=== PATIENT | female | born 1980 | race Asian ===

== ENCOUNTER 2017-05-18 05:50 | Inpatient (IN) | payer OTHER ==
--- NOTE | 2017-04-26 17:15 | GHP ---
[f rep st] PREOP HISTORY AND PHYSICAL DATE OF ADMISSION: 05/18/2017 Patient is scheduled for a repeat lower transverse section on May 18, 2017. PREOPERATIVE DIAGNOSIS: History of section, desires repeat at 39 weeks' gestation. HISTORY OF PRESENT ILLNESS: The patient is a 36-year-old, 2, para 1-0-0-1 with a last menstr ual period of 08/15/2016, and EDC of 05/23/2017 which is confirmed by an 8 week ultrasound. She has had good care at [facility] since registration at 8 weeks' gestation and has had a relatively uncomplicated course. The patient has a history of lower transverse se ction with G1 secondary to arrest of descent. The baby weighed 7 pounds 9 ounces and she had a prolo nged labor course. The patient declines a trial of labor after section with this baby. She desires of repeat lower transverse section at 39 weeks, and she is scheduled. Other risk factors include just rubella low immune, and she has an allergy to penicillin. I t gives her a rash. The patient has had normal labs in this and normal ultrasounds in this and progressed today to 36-1/7 weeks' gestation. She will be 39- 2/7 weeks on her [facility] ed day. PAST OBSTETRICAL HISTORY: Pertinent as above. Her prior was April of 2015. She had a viable female, weight 7 pounds 9 ounces at 39-6/7 weeks' gestation. secondary to arrest of descent, and this is her 2nd . PAST GYNECOLOGICAL HISTORY: She has a normal menses. She had menarche at age 14, interval every 28 days. Length 4-5 days. She had a normal last menstrual period of 08/15/2016. This was a planned pr egnancy. She has used NuvaRing and OCPs in the past. She denies history of abnormal Paps or STDs or any gynecological concerns. PAST MEDICAL HISTORY: She has exercise-induced asthma as a child and elevated BMI. PAST SURGICAL HISTORY: She has a history of ski injury and a right knee ACL repair in 2014, a C-sect ion also in 2014, wisdom teeth extraction in high school, and she had LASIK eye surgery in 2012. ALLERGIES: Penicillin. It gives her a rash. MEDICATIONS: Her only other meds include vitamins. LABORATORY DATA: She is O positive, antibody negative. RPR nonreactive. Rubella low immune. Hepat itis negative. HIV negative. Cystic fibrosis, SMA, fragile X negative. Pap normal. Gonorrhea and chlamydia normal. Progenity normal female. 1-hour GTT 108. GBS was performed today and so it is pe nding. SOCIAL HISTORY: She is . She lives with her , Brian, and her daughter, Jae. 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 She denies tobacco, alcohol, and drug use. FAMILY HISTORY: Father and paternal grandfather have elevated cholesterol. Maternal grandmother had lymphoma. Paternal grandmother has diabetes. REVIEW OF SYSTEMS: Today is negative except for symptoms as above. OBJECTIVE: VITAL SIGNS: Today her blood pressure is 98/56. Weight is 180 pounds. She is up 23 mahnaz nds this . GENERAL: She is a well-developed, gravid female in no acute distress. LAMONTE NGS: Clear to auscultation bilaterally. HEART: Regular rate and rhythm. No murmurs. ABDOMEN: Gr avid. Fundal height is 37. heart tones are in the 140s. IMAGING DATA: She had an ultrasound today which revealed baby to be size greater than dates by 5 day s. Estimated weight is 3122 g, which is 78th percentile. The baby is cephalic and TERRANCE is 19.1 . ASSESSMENT AND PLAN: A 36-year-old 2, para 1-0-0-1 who will be 39-2/7 weeks' gestation on [facility] 2017. She was consented for a repeat today. She understood the risks and benefi ts, the risks including bleeding, infection, damage to internal organs, uterus, tubes, ovaries, bowel , bladder, nerves, blood vessels, ureters, risk of injury, risk of hemorrhage requiring blood t ransfusion, hysterectomy, or . She understood these risks and benefits and agreed to proceed, a nd she declines a tubal ligation at this time. /[id number]/MODL
[2017-05-18] MEDS ORDERED: LR 1,000 ML IV SCH (06:05)
[2017-05-18] MEDS ORDERED: LR 500 ML IV ONE (06:05)
[2017-05-18] MEDS ORDERED: CITRIC ACID/SODIUM CITRATE 30 ML UDCUP PO ONE (06:05)
[2017-05-18 06:38] LABS: PLATELET COUNT 270 10^3/uL (150-400)
[2017-05-18] MEDS ORDERED: CLINDAMYCIN 900 MG/DEXTROSE 50 ML IV ONE (07:19)
--- NOTE | 2017-05-18 07:21 | PREANESOB ---
Obstetric Pre-Anesthesia Info - General Info Proposed Procedure: LTCS : 2 Para: 1 AMIRA: 05/23/17 Gestational Age: 39 week(s) and 2 day(s) - Info Status: Full Term Monitors: External FHR Pattern: Reassuring - Labor Status Section History: Repeat Indications for Current Section: Elective/Repeat Anesthesia ROS: negative other than persistant nausea through Allergies/Adverse Reactions: Allergy/AdvReac Type Severity Reaction Status Date / Time Penicillins Allergy Verified 05/04/15 19:21 Home Medications: Medication Instructions Recorded 1 tab PO DAILY 05/18/17 Visit Medications: Generic Name Dose Route Start Last Admin Trade Name Freq PRN Reason Stop Dose Admin Lactated Ringer's 1,000 mls @ 125 mls/hr 05/18/17 06:05 Lr IV 05/19/17 06:04 CONT SEBASTIÁN Discontinued Medications Generic Name Dose Route Start Last Admin Trade Name Freq PRN Reason Stop Dose Admin Citric Acid/Sodium Citrate 30 ml 05/18/17 06:05 05/18/17 07:15 Bicitra PO 05/18/17 06:06 30 ml ONCALL ONE Administration Lactated Ringer's 500 mls @ 0 mls/hr 05/18/17 06:05 Lr IV 05/18/17 06:06 ONCE ONE As Directed - Anesthesia History Response to Local Anesthetics: Normal Anesthesia & Operative History: No Prior Problems Family Anesthesia History: Not Applicable - Vital Signs Latest Vital Signs (Nursing): Temp Pulse Resp BP Pulse Ox 36.5 C 91 20 106/74 94 05/18/17 06:33 05/18/17 06:33 05/18/17 06:33 05/18/17 06:36 05/18/17 06:37 Height/Weight (Nursing): Height 156.21 cm Weight 81.647 kg - Focused Exam Neck exam: FROM Mallampati Score: Class 2 Mouth exam: normal dental/mouth exam, small mouth opening Pulmonary: no respiratory distress Cardiovascular: regular rate and rhythym Labs: 05/18/17 06:14 - Plan Anesthetic Plan: SAB Consent Signed and on Chart: Yes Patient/Guardian Understands and Agrees to Plan: Yes
[2017-05-18] MEDS ORDERED: MISOPROSTOL 200 MCG TAB ONE (07:23)
[2017-05-18] MEDS ORDERED: OXYTOCIN 10 UNIT/ML VIAL ONE (07:23)
[2017-05-18] MEDS ORDERED: fentaNYL 100 MCG/2 ML INJ ONE (07:30)
[2017-05-18] MEDS ORDERED: morphINE PF 5 MG/10 ML INJ ONE (07:30)
--- NOTE | 2017-05-18 08:03 | PDHPUP ---
History & Physical Update H&P update statement: This history and physical update is based on an assessment of the patient which was completed after admission or registration (within 24 hours), but prior to the surgery/procedure.
[2017-05-18] MEDS ORDERED: OXYTOCIN 100 UNITS/10 ML VIAL ONE (08:24)
[2017-05-18] MEDS ORDERED: PHENYLEPHRINE HCL 100 MCG/ML SYR ONE ×2 (08:24)
[2017-05-18] MEDS ORDERED: SIMETHICONE 80 MG TAB CHEW PO PRN (09:15)
[2017-05-18] MEDS ORDERED: ACETAMINOPHEN 325 MG TAB PO PRN (09:15)
[2017-05-18] MEDS ORDERED: PROMETHAZINE HCL 25 MG/ML INJ IVP PRN (09:15)
[2017-05-18] MEDS ORDERED: DOCUSATE SODIUM 100 MG CAP PO PRN (09:15)
[2017-05-18] MEDS ORDERED: MAGNESIUM HYDROXIDE 30 ML UDCUP PO PRN (09:16)
[2017-05-18] MEDS ORDERED: LACTULOSE 20 GM/30 ML UDCUP PO PRN (09:16)
[2017-05-18] MEDS ORDERED: POLYETHYLENE GLYCOL 3350 17 GM PKT PO PRN (09:16)
[2017-05-18] MEDS ORDERED: BISACODYL 10 MG SUPP PR PRN (09:16)
--- NOTE | 2017-05-18 09:20 | OBDEL ---
Info Type: Repeat Presentation at Delivery: Vertex L&D Analgesia/Anesthesia Type: Spinal GBS+: Yes Antibiotic Used for + GBS: Clindamycin Intrapartum Medications: Discontinued Medications Generic Name Dose Route Start Last Admin Trade Name Luis PRN Reason Stop Dose Admin Citric Acid/Sodium Citrate 30 ml 05/18/17 06:05 05/18/17 07:15 Bicitra PO 05/18/17 06:06 30 ml ONCALL ONE Administration Clindamycin Phosphate/Dextrose 50 mls @ 100 mls/hr 05/18/17 07:19 05/18/17 07 :42 Cleocin 900 Mg (Premix) IV 05/18/17 07:48 50 mls ONCALL ONE Administration Protocol - Care Provider Straw Hat Brim Cutter Operator/ENDOSCOPY TECHNICIAN: Michelle Erazo Indications for Delivery: Elective Operative Report - Delivery Pre-op Diagnoses: IUP @ 39 weeks, h/p c section desires repeat Post-op Diagnoses: same History of Prior Section: Yes Number of Prior Sections: 1 Nulliparous Prior to Delivery: No Indications for Prior Section: Arrest of Descent Indications for Current Section: Elective/Repeat Procedure: Scheduled Surgeon: Tita Bhakta Slipper Maker: Kady Grace Anesthesiologist: Kirk Salguero Complications: None Findings: normal uterus, tubes and ovaries IV Fluid (ml): 1,850 EBL: 750 Bledsoe Data AMIRA: 05/23/17 Gestational Age: 39 week(s) and 2 day(s) Souza Delivery Date: 05/18/17 Delivery Time: 08:28 Sex of : Female Score (1 Min): 9 Score (5 Min): 9 ICD10 Worksheet Patient Problems: Problems Problem Status Onset Status post repeat low transverse section Acute SROM (spontaneous rupture of membranes) Acute - ICD10 Problem Qualifiers (1) Status post repeat low transverse section
[2017-05-18] MEDS ORDERED: NALOXONE HCL 0.4 MG/ML INJ IVP PRN ×2 (09:24)
[2017-05-18] MEDS ORDERED: ONDANSETRON 4 MG/2 ML VIAL IVP PRN (09:24)
[2017-05-18] MEDS ORDERED: PHENYLEPHRINE HCL 100 MCG/ML SYR IVP PRN (09:24)
[2017-05-18] MEDS ORDERED: HYDROCODONE/APAP 5/325 TAB PO PRN (09:24)
[2017-05-18] MEDS ORDERED: fentaNYL 100 MCG/2 ML INJ IVP PRN (09:24)
--- NOTE | 2017-05-18 09:24 | POSTANESTH ---
Post Anesthetic Evaluation Cardiovascular Status: Normal, Stable Respiratory Status: Normal, Stable Level of Consciousness/Mental Status: Can Participate in Eval Pain Control: Adequate, Prn Tx Ordered Nausea/Vomiting Control: Adequate, Prn Tx Ordered Complications Possibly Related to Anesthesia: None Noted (SAB still in place)
--- NOTE | 2017-05-18 09:59 | GOP ---
[f rep st] OPERATIVE REPORT DATE OF OPERATION: 05/18/2017 SURGEON: Tita Bhakta MD CASH OFFICE WORKER: DREW Moore, certified nurse first anesthesia. ANESTHESIA: Spinal anesthesia. ANESTHESIOLOGIST: Kirk Salguero MD. PREOPERATIVE DIAGNOSIS: Intrauterine at 39+ weeks gestation with a history of se condary to arrest of descent, desires repeat. POSTOPERATIVE DIAGNOSIS: Intrauterine at 39+ weeks gestation with a history of secondary to arrest of desc ent, desires repeat. PROCEDURE PERFORMED: Repeat lower transverse section. FINDINGS: Viable female. Apgars of 9 and 9. Weight of 7 pounds 11 ounces. ESTIMATED BLOOD LOSS: 750 cc. INDICATIONS: The patient is a 36-year-old, 2, para 1-0-0-1 with a last menstrual period of 0 08/15/2016, and an EDC of 05/23/2017, confirmed by an 8-week ultrasound. She has had an uncomplicated course. She has a history of secondary to arrest of descent with G1 and desired repeat. She declined a trial of labor after section. The patient was consented for the pro cedure, understood the risks and benefits. The risks including bleeding, infection, damage to environmental intern al organs, uterus, tubes, ovaries, bowel, bladder, nerves, blood vessels, ureters, risk of inju ry, risk of hemorrhage requiring blood transfusion, hysterectomy, or complications. She understood t hese risks and benefits agreed to proceed. DESCRIPTION OF PROCEDURE: The patient was taken to the operating room where she was placed under spi nal anesthesia without difficulty. She was prepped and draped in the dorsal supine position with a l eftward tilt and a Griffith catheter was placed in her bladder. After adequate anesthesia was assured a nd a WHO timeout was performed, a transverse skin incision was made in the previous scar. The incision was carried down to the underlying layer of fascia with the Bovie. The fascia was incis ed in the midline. Fascial incision was extended laterally with Sultana scissors. the superior aspect of the fascial incision was grasped with Gena clamps, elevated, and the rectus muscles were dissect ed off sharply. The inferior aspect of fascial incision was grasped with Gena clamps, elevated, an d the rectus muscles were dissected off sharply. The rectus muscles were in the midline, p eritoneum was entered sharply. Peritoneal incision was extended superiorly and inferiorly with good visualization of bladder. Bladder blade was inserted. Vesicouterine peritoneum was grasped with pic kups, entered sharply with Metzenbaum scissors. The incision was extended laterally, and bladder fla p was created digitally. Bladder blade was reinserted. The uterus was incised with a knife. There was clear amniotic fluid upon entry of the uterine cavity. The incision was extended laterally with bandage scissors. The infant was in OSWALD presentation, was delivered atraumatically without difficult y. We delayed cord clamping for 1 minute. Cord was clamped and cut. was handed off to the [facility] nurse practitioner. Cord blood gas was sent. Placenta was removed manually. Uterus was exteriorized, cleared of all clots and debris. The uterine incision was repaired with 0 Vicryl in a running locked fashion. A second imbricating layer of suture was performed with 0 Vicryl and go od hemostasis was obtained. The uterus was returned to the abdomen. Gutters were cleared of all renata ts and debris. Reinspection of the uterine incision revealed good hemostasis. The rectus muscles we re approximated with 2-0 Vicryl in an inverted mattress fashion. The fascia was closed with #1 Vicry l in a running fashion. Subcutaneous layer was closed with 2-0 Vicryl and skin was closed with 4-0 V icryl. The patient tolerated the procedure well. Sponge, lap, needle, and instrument counts were co rrect x3. Patient went to the recovery room in good condition. IV FLUIDS: 1850 cc. URINE OUTPUT: 100 cc. /[id number]/MODL
[2017-05-18] MEDS: KETOROLAC 30 MG/1 ML SDV IVP PRN ×2 (14:01→20:11)
--- NOTE | 2017-05-18 15:13 | OBPP ---
Progress Note Assessment/Plan: Assessment: 36 y/o POD 0 s/p Rpt LTCS doing well. Plan: Routine PPC, support. Advance diet and po pain meds in am. 05/18/17 15:11 Subjective/ Course: 05/18/17 15:08 Pt is comfortable now with Toradol. She is tolerating clear liquids without nausea. Baby is breast feeding well. Objective: 05/18/17 06:14 Patient ABO/Rh O POSITIVE 05/18/17 06:14 Temp Pulse Resp BP Pulse Ox 36.6 C 94 16 95/93 H 89 L 05/18/17 14:15 05/18/17 14:15 05/18/17 14:15 05/18/17 14:15 05/18/17 14:15 Uterine Position/Fundal Height: Umbilicus -2 Uterine Tone: Firm Physical Exam - Physical Exam Neck: non-tender, full range of motion, supple Respiratory: chest non-tender, lungs clear, normal breath sounds Cardiac/Chest: regular rate, rhythm Abdomen: normal bowel sounds, dressing (c/d/i) Extremities: swelling (no), Evelyn's sign (neg)
[2017-05-18] MEDS: SENNOSIDES/DOCUSATE SODIUM TAB PO SCH (20:11)
[2017-05-19] MEDS: KETOROLAC 30 MG/1 ML SDV IVP PRN ×2 (02:25→08:38)
[2017-05-19] MEDS: SENNOSIDES/DOCUSATE SODIUM TAB PO SCH ×2 (08:39→21:42)
--- NOTE | 2017-05-19 09:14 | OBPP ---
Progress Note Assessment/Plan: Assessment: 1) s/p RCS, BTL POD # 1 - pt is stable 2) Anemia - pt is asymptomatic Plan: Continue routine post-op care Palafox just removed, monitor urine output Start po meds as ordered To remove dressing this am, pt may shower Encourage ambulation Plan for d/c home in 24-48 hrs 05/19/17 09:11 Subjective/ Course: 05/18/17 15:08 Pt is comfortable now with Toradol. She is tolerating clear liquids without nausea. Baby is breast feeding well. 05/19/17 09:12 Pt seen and examined. Doing well, pain is well controlled with Toradol. She is OOB, zainab regular diet, palafox just removed-has not voided yet, passing flatus. Denies any f/c/n/v/CP or SOB. BF without difficulty. Objective: 05/19/17 04:30 Patient ABO/Rh O POSITIVE 05/18/17 06:14 Temp Pulse Resp BP Pulse Ox 36.8 C 82 16 88/58 L 93 05/19/17 04:20 05/19/17 06:00 05/19/17 04:20 05/19/17 04:20 05/19/17 06:00 Uterine Position/Fundal Height: Umbilicus -2 Uterine Tone: Firm Physical Exam - Physical Exam Respiratory: lungs clear, normal breath sounds Cardiac/Chest: regular rate, rhythm Abdomen: normal bowel sounds, non-tender, soft, flatus (+), incision (C/D/I with dressing in place), dressing (C/D/I) Extremities: non-tender, normal inspection Skin: normal color, warm/dry Neuro/Psych: alert, normal mood/affect, oriented x 3
[2017-05-19] MEDS: OXYCODONE/APAP 5/325 TAB PO PRN ×2 (13:58→21:42)
[2017-05-19] MEDS: IRON POLYSAC/IRON HEME 28 MG TAB PO SCH ×2 (13:59→21:42)
[2017-05-19] MEDS: IBUPROFEN 600 MG TAB PO PRN (16:44)
[2017-05-19] MEDS ORDERED: MEASLES,MUMPS&RUBELLA VACC/PF 0.5 ML VIAL SC ONE ×2 (18:39→21:30)
[2017-05-20] MEDS: IBUPROFEN 600 MG TAB PO PRN ×4 (02:22→22:34)
[2017-05-20] MEDS: OXYCODONE/APAP 5/325 TAB PO PRN ×4 (02:22→17:57)
[2017-05-20] MEDS: SENNOSIDES/DOCUSATE SODIUM TAB PO SCH ×2 (09:45→20:08)
[2017-05-20] MEDS: IRON POLYSAC/IRON HEME 28 MG TAB PO SCH ×2 (09:45→20:08)
--- NOTE | 2017-05-20 10:45 | OBPP ---
Progress Note Assessment/Plan: Assessment: POD 2 s/p RCS, BS Plan: Plan d/c tomorrow, on iron 05/20/17 10:42 Subjective/ Course: 05/18/17 15:08 Pt is comfortable now with Toradol. She is tolerating clear liquids without nausea. Baby is breast feeding well. 05/19/17 09:12 Pt seen and examined. Doing well, pain is well controlled with Toradol. She is OOB, zainab regular diet, palafox just removed-has not voided yet, passing flatus. Denies any f/c/n/v/CP or SOB. BF without difficulty. 05/20/17 10:43 Pt currently sleeping, not disturbed. Pt's mom says they don't want to go home today. Will see later Objective: 05/19/17 04:30 Patient ABO/Rh O POSITIVE 05/18/17 06:14 Temp Pulse Resp BP Pulse Ox 36.3 C 87 20 109/70 95 05/20/17 08:50 05/20/17 08:50 05/20/17 08:50 05/20/17 08:50 05/20/17 08:50
--- NOTE | 2017-05-20 15:35 | OBPP ---
Progress Note Assessment/Plan: Assessment: POD 2 s/p RCS, BS Plan: Plan d/c tomorrow, on iron 05/20/17 10:42 Subjective/ Course: 05/18/17 15:08 Pt is comfortable now with Toradol. She is tolerating clear liquids without nausea. Baby is breast feeding well. 05/19/17 09:12 Pt seen and examined. Doing well, pain is well controlled with Toradol. She is OOB, zainab regular diet, palafox just removed-has not voided yet, passing flatus. Denies any f/c/n/v/CP or SOB. BF without difficulty. 05/20/17 10:43 Pt currently sleeping, not disturbed. Pt's mom says they don't want to go home today. Will see later 05/20/17 15:32 Pt doing well. states pain controlled with percocet and ibu q 4 hrs. will taper when able. had BM this am - using prune juice and stool softeners. urinating fine. bld is light. some nausea if percocet on empty stomach. Objective: 05/19/17 04:30 Patient ABO/Rh O POSITIVE 05/18/17 06:14 Temp Pulse Resp BP Pulse Ox 36.3 C 87 20 109/70 95 05/20/17 08:50 05/20/17 08:50 05/20/17 08:50 05/20/17 08:50 05/20/17 08:50 Uterine Position/Fundal Height: Umbilicus -1 Uterine Tone: Firm Physical Exam - Physical Exam Abdomen: non-tender (approp post op tenderness), soft, other (FF at umb -1, incision CDI, steristrips intact) Extremities: non-tender, pedal edema (mild edema) Skin: normal color, warm/dry Neuro/Psych: alert, normal mood/affect
[2017-05-20] MEDS: HYDROCODONE/APAP 5/325 TAB PO PRN (22:34)
[2017-05-21] MEDS: HYDROCODONE/APAP 5/325 TAB PO PRN ×2 (02:34→06:33)
[2017-05-21] MEDS: IBUPROFEN 600 MG TAB PO PRN ×2 (04:35→10:20)
[2017-05-21 08:39] VITALS: BP 104/71; PULSE 68; RESP 17; TEMP 98.5; O2SAT 95
[2017-05-21] MEDS: SENNOSIDES/DOCUSATE SODIUM TAB PO SCH (09:43)
[2017-05-21] MEDS: IRON POLYSAC/IRON HEME 28 MG TAB PO SCH (09:43)
--- NOTE | 2017-05-21 09:57 | OBGCSDC ---
General Delivery Information - General Info : 2 Para: 2 Abortions: 0 Type: Repeat L&D Analgesia/Anesthesia Type: Spinal Admission Date: 05/18/17 Labs: Patient ABO/Rh O POSITIVE 05/18/17 06:14 Hct 35.3 % (38.0-47.0) L 05/19/17 04:30 - Hospital Course : 05/18/17 15:08 Pt is comfortable now with Toradol. She is tolerating clear liquids without nausea. Baby is breast feeding well. 05/19/17 09:12 Pt seen and examined. Doing well, pain is well controlled with Toradol. She is OOB, zainab regular diet, palafox just removed-has not voided yet, passing flatus. Denies any f/c/n/v/CP or SOB. BF without difficulty. 05/20/17 10:43 Pt currently sleeping, not disturbed. Pt's mom says they don't want to go home today. Will see later 05/20/17 15:32 Pt doing well. states pain controlled with percocet and ibu q 4 hrs. will taper when able. had BM this am - using prune juice and stool softeners. urinating fine. bld is light. some nausea if percocet on empty stomach. 05/21/17 10:23 S) Pt doing well, reports min pain and bleeding. She is having some difficulty tolerating pain medication without vomiting, will try to take percocet (1 tablet ) and will take zofran 30min-1 hr prior. she is ambulating and voiding without difficulty. She is . She desires discharge home today. FOB @ BS, supportive. O) VSS, afebrile constitutional: WNWF, A&Ox3 HEENT: normocephalic, atraumatic, supple Heart: RRR, No murmur Chest: CTA-B Abdomen: Soft, nontender Incision: C/D/I, steristrips present Uterus: Firm at U-2 Lochia: Minimal rubra Perineum: Intact Extremities: Trace edema, and negative Evelyn's sign Neuro: Grossly normal A) 36-year-old s/p repeat c/s POD#4 P) Discharge home today Continue will take zofran prior to narcotics Rxs: zofran, percocet, ibuprofen given Pelvic rest x6wks Discussed danger signs (infection, preeclampsia, depression, heavy bleeding, etc ) RTO in 2/4/6 weeks - Delivery Providers Surgeon: Tita Bhakta Supervisor Blast Furnace: Kady Grace Anesthesiologist: Kirk Salguero - Delivery Number of Prior Sections: 1 Indications for Current Section: Elective/Repeat Surgical Procedures: Scheduled Intra-op Complications: None EBL: 750 Data AMIRA: 05/23/17 Gestational Age: 39 week(s) and 5 day(s) Souza Delivery Date: 05/18/17 Delivery Time: 08:28 Sex of : Female Score (1 Min): 9 Score (5 Min): 9 Discharge Information - Discharge Information Prescriptions: Ibuprofen [Motrin (*)] 600 mg PO Q6HRS PRN #30 tab PRN Reason: Inflammation oxyCODONE/APAP 5/325 [Percocet 5/325 (*)] 1 - 2 tab PO Q4-6PRN PRN #20 tab PRN Reason: Pain, Severe Able To Take Po Condition: Good Instruction/Follow Up: Two Weeks, Four Weeks, Six Weeks
[2017-05-21] MEDS ORDERED: ONDANSETRON DISINTEGRATING 4 MG TAB PO PRN (10:06)
[2017-05-21] MEDS: OXYCODONE/APAP 5/325 TAB PO PRN ×2 (10:57→15:17)
== END 2017-05-21 15:52 | disposition home or self-care (01) | DRG 766 ==
LOC: FLD 05:50 → FOB 11:32
PROVIDERS: ADMIT Obstetrics & Gynecology; ATTEND Obstetrics & Gynecology
PROC: 10D00Z1 Extraction of Products of Conception, Low, Open Approach (ICD-10-PCS; principal; 2017-05-18)
DX: O34.219 Maternal care for unspecified type scar from previous cesarean delivery (principal); O90.81 Anemia of the puerperium; Z3A.39 39 weeks gestation of pregnancy; Z37.0 Single live birth
CPT/HCPCS: J1885; J2274; J2370; J2590; J3010